=== PATIENT | female | born 1980 | race Caucasian/White ===

== ENCOUNTER 2019-05-05 14:38 | Emergency (ER) | payer OTHER, SELFPAY ==
[2019-05-05 14:45] VITALS: BP 145/93; PULSE 110; RESP 16; TEMP 36.7; O2SAT 98
--- NOTE | 2019-05-05 14:59 | ED.URI ---
HPI - URI/Sore Throat General Chief Complaint: Upper Respiratory Infection Stated Complaint: Fever Time Seen by Provider: 05/05/19 14:52 Source: patient and RN notes reviewed Mode of arrival: ambulatory Limitations: no limitations History of Present Illness HPI Narrative: Patient presents today with a 3-day history of fever up to 102, fatigue, congestion, rhinorrhea. Denies cough, sore throat, nausea, vomiting, diarrhea. Eating and drinking normally. She has not taken anything for her symptoms since onset. MD elicited complaint: fever and nasal congestion Related Data Home Medications Medication Instructions Recorded Confirmed divalproex 250 mg PO Q12H 05/05/19 05/05/19 quetiapine 300 mg PO HS 05/05/19 05/05/19 sertraline 50 mg PO DAILY 05/05/19 05/05/19 sertraline 100 mg PO DAILY 05/05/19 05/05/19 venlafaxine 150 mg PO DAILY 05/05/19 05/05/19 Allergies Allergy/AdvReac Type Severity Reaction Status Date / Time PROPOXYPHENE NAPSYLATE Allergy Unknown Hives, Uncoded 05/05/19 14:55 SWELLING Review of Systems Review of Systems: Narrative: CONSTITUTIONAL: Denies body aches, chills, or sweats.+Fever, fatigue EYES: Denies visual changes, redness, or discharge. ENT: Denies sore throat, or otalgia.+Rhinorrhea, congestion CARDIOVASCULAR: Denies chest pain, palpitations, or edema. RESPIRATORY: Denies cough or dyspnea. GASTROINTESTINAL: Denies abdominal pain, nausea, vomiting, or diarrhea. GENITOURINARY: Denies dysuria or hematuria. SKIN: Denies rash, itching, or wounds. MUSCULOSKELETAL: Denies back pain, joint pain, or myalgia. NEUROLOGIC: Denies headache, numbness, tingling, or weakness. PSYCH: Denies depression or anxiety. [facility] Family History Family History (Updated 10/10/13 @ 07:13 by DOCTOR UNKNOWN) Grandparent Family history of arthritis Social History Social History Smoking status: Never smoker Alcohol intake: current Comments At time of signature, I have reviewed and agree with nursing past medical, surgical, social and family history unless otherwise noted. Please see nursing chart for further information. There is no relevant family history pertinent to the presenting complaint Exam Narrative: Exam Narrative: GENERAL: Well-appearing, well-nourished, and in no acute distress. HEAD: Normocephalic, atraumatic. EYES: EOMI. No redness or drainage. Conjunctivae normal. ENT: Mucous membranes pink and moist. Nares Congested with rhinorrhea. TMs normal bilaterally. Throat normal. Uvula midline. NECK: Normal AROM. Supple. No lymphadenopathy. CHEST: No respiratory distress. Clear to auscultation. HEART: Regular rate and rhythm. No murmur appreciated. Normal peripheral pulses. EXTREMITIES: Normal range of motion. No edema. SKIN: Warm, dry, no rash. NEURO: No focal deficits. Alert and oriented x3. Gait steady. PSYCH: Normal affect. No signs of depression or anxiety. Course Vital Signs Vital signs: Vital Signs Temperature 98.1 F 05/05/19 14:45 Pulse Rate 110 H 05/05/19 14:45 Respiratory Rate 16 05/05/19 14:45 Blood Pressure 145/93 H 05/05/19 14:45 Pulse Oximetry 98 05/05/19 14:45 Temperature 98.1 F 05/05/19 14:45 Pulse Rate 110 H 05/05/19 14:45 Respiratory Rate 16 05/05/19 14:45 Blood Pressure 145/93 H 05/05/19 14:45 Pulse Oximetry 98 05/05/19 14:45 Reviewed. Pt has been instructed to follow up with her PCP regarding her elevated blood pressure today. MDM - URI/Sore Throat Differential Diagnosis Differential diagnosis: Likely upper respiratory infection, otitis media, viral infection, influenza and other (COVID-19) Lab Data Attestation: I reviewed the patient's lab results. Labs: Influenza A Screen Negative Reference Range: Negative Influenza B Screen Negative Reference Range: Negative Critical Care Time Critical Care Time Critical Care Time: No Discharge Plan Discharge Clinical Impression:
== END 2019-05-05 15:22 | disposition home or self-care (01) ==
PROVIDERS: Emergency Provider Nurse Practitioner
DX: B34.9 Viral infection, unspecified (principal); F41.9 Anxiety disorder, unspecified; F31.9 Bipolar disorder, unspecified
CPT/HCPCS: 87804; 99212; G0463

== ENCOUNTER 2022-03-02 12:23 | Emergency (ER) | payer OTHER, SELFPAY ==
[2022-03-02 12:33] VITALS: BP 145/83; PULSE 98; RESP 16; TEMP 36.6; O2SAT 98
--- NOTE | 2022-03-02 12:39 | ED.URI ---
HPI - URI/Sore Throat General Chief Complaint: Upper Respiratory Infection Stated Complaint: Sore Throat/Cough/Fever Time Seen by Provider: 03/02/22 12:39 Source: patient Mode of arrival: ambulatory Limitations: no limitations History of Present Illness HPI Narrative: 41-year-old female presents with complaint of cough, congestion, body aches, chills, fatigue for 2 days. Patient reports low-grade fever. Is not taking any [id number] medications to treat her symptoms. Patient's tested positive for COVID at home. She states that there out of home test. Denies chest pain and shortness of breath. Denies nausea vomiting diarrhea. All systems reviewed and negative except as noted above. Related Data Home Medications Medication Instructions Recorded Confirmed bupropion HCl 300 mg 24 hr tablet, 300 mg PO DAILY 03/02/22 03/02/22 extended release divalproex 250 mg tablet,delayed 250 mg PO TID 03/02/22 03/02/22 release sertraline 50 mg tablet 50 mg PO DAILY 03/02/22 03/02/22 Allergies Allergy/AdvReac Type Severity Reaction Status Date / Time No Known Allergies Allergy Verified 03/02/22 12:49 Review of Systems Review of Systems: CONSTITUTIONAL: Reports fever, chills, or sweats. EYES: Denies visual changes, redness, or discharge. ENT: reports rhinorrhea, congestion. Denies sore throat, or otalgia. CARDIOVASCULAR: Denies chest pain, palpitations, or edema. RESPIRATORY: Denies cough or dyspnea. GASTROINTESTINAL: Denies abdominal pain, nausea, vomiting, or diarrhea. GENITOURINARY: Denies dysuria or hematuria. SKIN: Denies rash or itching. MUSCULOSKELETAL: Denies back pain, joint pain, or myalgia. NEUROLOGIC: Denies headache, numbness, or weakness. PSYCHIATRIC: Denies anxiety or depression. All other systems reviewed are negative, except as documented in HPI. PMFSH Comments At time of signature, agree with nursing past medical, surgical, social and family history. There is no relevant family history pertinent to the presenting complaint. Exam Narrative: GENERAL: This is a well-nourished, well-developed patient. Patient ill-appearing but no distress. HEAD: normocephalic, atraumatic. EYES: PERRL. Sclera clear/white. Vision is grossly intact. EARS: External ears normal, auditory canals clear and without drainage, TMs normal without perforation. Hearing grossly intact. NOSE: External nose normal with Clear nasal drainage with mild erythema. THROAT: Mucous membranes moist, posterior pharynx clear. NECK: Neck supple, non-tender without lymphadenopathy, masses or thyromegaly. CARDIOVASCULAR: Regular rate and rhythm without murmurs, gallops, or rubs. RESPIRATORY: Clear to auscultation. Breath sounds equal bilaterally. No wheezes, rales, or rhonchi. SKIN: warm, Dry, intact with no suspicious lesions or rash, good texture and turgor. NEURO: awake, alert, and oriented to person, place and time. There were no obvious focal neurologic abnormalities. EXTREMITIES: No joint tenderness, effusion, or edema noted. Course Course Level of Care: Express Care Visit Vital Signs Vital signs: Vital Signs Temperature 36.6 C 03/02/22 12:33 Pulse Rate 98 03/02/22 12:33 Respiratory Rate 16 03/02/22 12:33 Blood Pressure 145/83 H 03/02/22 12:33 Pulse Oximetry 98 03/02/22 12:33 Oxygen Delivery Room Air 03/02/22 12:33 Temperature 36.6 C 03/02/22 12:33 Pulse Rate 98 03/02/22 12:33 Respiratory Rate 16 03/02/22 12:33 Blood Pressure 145/83 H 03/02/22 12:33 Pulse Oximetry 98 03/02/22 12:33 Oxygen Delivery Room Air 03/02/22 12:33 Reviewed MDM - URI/Sore Throat MDM Narrative Medical decision making narrative: Patient is aware of diagnosis, understands and agrees to treatment plan. Anticipatory guidance given. Patient agrees to follow-up as directed and is aware of reasons to seek care at the emergency department. Portions of this record may have been created with voice r
== END 2022-03-02 12:52 | disposition home or self-care (01) ==
PROVIDERS: Emergency Provider Nurse Practitioner Family; PCP Emergency Medicine
DX: U07.1 COVID-19 (principal); F31.9 Bipolar disorder, unspecified; F42.9 Obsessive-compulsive disorder, unspecified
CPT/HCPCS: 87426; 99213; C9803; G0463

== ENCOUNTER 2023-02-15 15:44 | Emergency (ER) | payer OTHER, SELFPAY ==
--- NOTE | ~2023-02-15 | XR_ITS ---
EXAMINATION: XR foot RT min 3V DATE: 02/15/2023 16:05 INDICATION: Right foot injury and pain. TECHNIQUE: 4 views of right foot were obtained. COMPARISON: None. FINDINGS: Bone alignment is normal. No fracture. There is mild osteoarthritis of first metatarsophala ngeal joint. IMPRESSION: 1. Mild osteoarthritis of first metatarsophalangeal joint. Reviewed, dictated and finalized at location [facility]
[2023-02-15 15:58] VITALS: BP 119/84; PULSE 111; RESP 16; TEMP 36.7; O2SAT 98
--- NOTE | 2023-02-15 16:01 | ED.LOWEXIN ---
HPI - Extremity Injury (Lower) General Chief Complaint: Extremity Injury, Lower Stated Complaint: INJURED TOE Time Seen by Provider: 02/15/23 16:08 Source: patient Mode of arrival: ambulatory Limitations: no limitations History of Present Illness HPI Narrative: 42 y/o female presented for c/o right 3rd toe pain after injury today. States she tripped over her dog and stubbed the toe into the door jam. Will not take anything for pain stating Tylenol makes her sleepy and motrin upsets her stomach. Denies numbness, tingling or weakness of the foot. Related Data Home Medications Medication Instructions Recorded Confirmed divalproex 250 mg tablet,delayed 500 mg PO BID 03/02/22 02/15/23 release loratadine 10 mg tablet (Claritin) 10 mg PO DAILY 03/02/22 02/15/23 melatonin 10 mg tablet 10 mg PO HS 03/02/22 02/15/23 quetiapine 300 mg tablet,extended 400 mg PO QHS 03/02/22 02/15/23 release 24 hr quetiapine 50 mg tablet 50 mg PO DAILY 03/02/22 02/15/23 sertraline 50 mg tablet 150 mg PO DAILY 03/02/22 02/15/23 levothyroxine 50 mcg tablet 50 mcg PO DAILY 02/15/23 02/15/23 rosuvastatin 40 mg tablet 40 mg PO DAILY 02/15/23 02/15/23 Allergies Allergy/AdvReac Type Severity Reaction Status Date / Time No Known Allergies Allergy Verified 02/15/23 15:52 Review of Systems Review of Systems: CONSTITUTIONAL: Denies body aches, fever, chills CARDIOVASCULAR: Denies chest pain, palpitations, or edema. RESPIRATORY: Denies cough or dyspnea. GASTROINTESTINAL: Denies abdominal pain, nausea, vomiting, or diarrhea. SKIN: Denies rash, itching, or wounds. MUSCULOSKELETAL: Reports toe pain Denies back pain, or myalgia. NEUROLOGIC: Denies headache, numbness, tingling, or weakness. All systems reviewed & are unremarkable except as noted in HPI and below PMFSH Past Medical History Medical History (Updated 02/15/23 @ 16:20 by Dana Lyon APRN) Hypothyroid Comments At time of signature, I have reviewed and agree with nursing past medical, surgical, social and family history unless otherwise noted. Please see nursing chart for further information. There is no relevant family history pertinent to the presenting complaint Exam Narrative: GENERAL: Well-appearing CHEST: Speaks in full sentences. No respiratory distress. HEART: Regular rate and rhythm. Normal and equal peripheral pulses. EXTREMITIES: Right 3rd toe with mild erythema to dorsal aspect of the toe. Scant bleeding at end of the toenail. Reports tenderness to plantar surface at 3rd-4th MTP joints. Foot has normal strength and sensation, normal range of motion. No open wounds, skin tenting, or obvious deformity; alignment normal, pulse palpable and equal bilaterally, skin warm, dry, pink. Capillary refill less than 3 seconds. SKIN: Warm, dry, no rash. NEURO: Alert and oriented x3. Course Course Emergency Course: Patient is aware of diagnosis, understands and agrees to treatment plan. Anticipatory guidance given. Patient agrees to follow-up as directed and is aware of reasons to seek care at the emergency department. Portions of this record may have been created with voice recognition software Level of Care: Express Care Visit Vital Signs Vital signs: Vital Signs Temperature 98.1 F 02/15/23 15:58 Pulse Rate 111 H 02/15/23 15:58 Respiratory Rate 16 02/15/23 15:58 Blood Pressure 119/84 02/15/23 15:58 Pulse Oximetry 98 02/15/23 15:58 Temperature 98.1 F 02/15/23 15:58 Pulse Rate 111 H 02/15/23 15:58 Respiratory Rate 16 02/15/23 15:58 Blood Pressure 119/84 02/15/23 15:58 Pulse Oximetry 98 02/15/23 15:58 Reviewed MDM - Extremity Injury (Lower) MDM Narrative Medical decision making narrative: Results of x-ray reviewed with patient. Post op shoe applied. Discussed physical exam findings. Advised supportive measures and signs/symptoms to go to the ER. Pt is appropriate for outpt treatment and f/u. Differential Diagnos
== END 2023-02-15 16:20 | disposition home or self-care (01) ==
PROVIDERS: Emergency Provider Nurse Practitioner Family; PCP Internal Medicine
DX: M79.674 Pain in right toe(s) (principal); E03.9 Hypothyroidism, unspecified
CPT/HCPCS: 73630; 99213; G0463